=== PATIENT | female | born 1945 | race African-American/Black ===

== ENCOUNTER 2022-07-29 15:04 | Inpatient (IN) | payer OTHER ==
[~2022-07-29] VITALS: Ht 160 cm; Wt 51.3 kg
[~2022-07-29 15:04] MED LIST: FAMOTIDINE40 MG PO; OXYC1TAB9 PO; PRAVASTATIN SOD20 MG PO; PROBIOTIC & AC1 EACH PO
[2022-07-30] MEDS ORDERED: COENZYME Q10100 M1 PO (13:07)
[2022-07-30] MEDS ORDERED: FOSAMAX70 MG PO (13:07)
[2022-07-30] MEDS ORDERED: XARELTO (13:08)
[2022-07-30] MEDS ORDERED: METHOTREXATE (13:08)
[2022-07-30] MEDS ORDERED: FAMOTIDINE (13:09)
[2022-07-30] MEDS ORDERED: FOLIC ACID (13:09)
[2022-07-30] MEDS ORDERED: ALTACE10 MG (13:10)
[2022-07-30] MEDS ORDERED: NEURONTIN300 MG PO (13:10)
[2022-07-30] MEDS ORDERED: CRESTOR40 MG PO (13:10)
== END 2022-08-17 14:08 | disposition home or self-care (01) | DRG 349 ==
LOC: ADM 07-30 11:45 → EDSTATUS 07-30 11:45 → SURG 08-02 11:45 → O/R 08-16 06:57 → SURG 08-16 21:40
PROVIDERS: ADMIT Surgery; ATTEND Surgery
PROC: 0DUR0JZ Supplement Anal Sphincter with Synthetic Substitute, Open Approach (ICD-10-PCS; 2022-08-16)
PROC: 0DBP7ZZ Excision of Rectum, Via Natural or Artificial Opening (ICD-10-PCS; principal; 2022-08-16 09:45)
DX: K62.3 Rectal prolapse (principal); R15.9 Full incontinence of feces; Z20.822 Contact with and (suspected) exposure to COVID-19

== ENCOUNTER 2024-04-30 11:15 | Inpatient (IN) | payer OTHER ==
[~2024-04-30] VITALS: Ht 160 cm; Wt 54.0 kg
[~2024-04-30 11:15] MED LIST changes: +ALTACE10 MG; +COENZYME Q10100 M1 PO; +CRESTOR40 MG PO; +FAMOTIDINE; +FOLIC ACID; +FOSAMAX70 MG PO; +METHOTREXATE; +NEURONTIN300 MG PO; +XARELTO
[2024-05-07] MEDS ORDERED: CEFTRIAXONE SODIUM 2,000 MG VIAL IV SCH (14:45)
[2024-05-07] MEDS ORDERED: POVIDONE-IODINE 118 ML BOTT TOP SCH (14:45)
[2024-05-07] MEDS ORDERED: BUPIVACAINE HCL 30 ML VIAL IJ SCH (14:45)
[2024-05-07] MEDS ORDERED: METRONIDAZOLE/SODIUM CHLORIDE 500 MG/100 ML PIGGYBACK IV SCH (14:45)
[2024-05-07] MEDS ORDERED: LIDOCAINE HCL 1%/EPINEPHRINE 20ML VIAL IJ SCH (14:45)
[2024-05-07] MEDS ORDERED: RINGERS SOLUTION,LACTATED 1,000 ML IV SCH (15:30)
[2024-05-07] MEDS ORDERED: DEXTROSE 50 % IN WATER 0.5 G/ML VIAL IV PRN (15:30)
[2024-05-07] MEDS ORDERED: ONDANSETRON HCL 2 MG/ML VIAL IV PRN (15:30)
[2024-05-07] MEDS ORDERED: MORPHINE SULFATE 4 MG/ML CARTRIDGE IV PRN (15:30)
[2024-05-07] MEDS ORDERED: OxyCODONE HCL 5 MG TABLET (ROXICODONE) PO PRN (15:30)
[2024-05-07] MEDS ORDERED: GABAPENTIN 300 MG CAPSULE PO SCH (17:00)
[2024-05-07 18:08] LABS: HEMATOCRIT 34.7 % (36.0-45.00); HEMOGLOBIN 11.6 g/dL (12.0-15.00); MEAN CELL VOLUME 89.1 fL (80.00-100.00); MEAN CORPUSCULAR HEMOGLOBIN 29.8 pg (27.00-32.0); MEAN CORPUSCULAR HGB CONC 33.4 g/dl (32.0-36.0); PLATELET COUNT 184 K/uL (150-450); RED CELL DISTRIBUTION WIDTH 14.1 % (11.5-14.5)
[2024-05-07 18:24] LABS: ALBUMIN 3.4 gm/dL (3.4-5.0); CALCIUM 9.8 mg/dL (8.5-10.1); CREATININE SERUM 0.47 mg/dL (0.55-1.02); GFR 127.83; MAGNESIUM 1.8 mg/dL (1.8-2.4); POTASSIUM 4.13 mEq/L (3.5-5.1)
[2024-05-07] MEDS ORDERED: ACETAMINOPHEN 500 MG GEL..CAP PO SCH (20:00)
[2024-05-07] MEDS ORDERED: FAMOTIDINE/PF 20 MG/2 ML VIAL IV PUSH SCH (21:00)
[2024-05-08 08:52] LABS: CALCIUM 9.7 mg/dL (8.5-10.1); CREATININE SERUM 0.43 mg/dL (0.55-1.02); GFR 141.65; MAGNESIUM 1.8 mg/dL (1.8-2.4); PHOSPHOROUS 3.6 mg/dL (2.5-4.9); POTASSIUM 4.49 mEq/L (3.5-5.1)
[2024-05-08] MEDS ORDERED: RAMIPRIL 5 MG CAPSULE PO SCH (09:00)
[2024-05-08] MEDS ORDERED: PAIN RELIEVER500 M2 PO (09:09)
[2024-05-08] MEDS ORDERED: GABAPENTIN300 MG PO (09:10)
[2024-05-08] MEDS ORDERED: MIRALAX17 GM PO (09:10)
[2024-05-08] MEDS ORDERED: INTESTINEX680 M1 PO (09:11)
[2024-05-08 09:24] LABS: HEMOGLOBIN 10.8 g/dL (12.0-15.00); MEAN CORPUSCULAR HEMOGLOBIN 29.5 pg (27.00-32.0); MEAN CORPUSCULAR HGB CONC 32.8 g/dl (32.0-36.0); PLATELET COUNT 175 K/uL (150-450); RED BLOOD COUNT 3.67 M/uL (4.00-6.00); RED CELL DISTRIBUTION WIDTH 13.8 % (11.5-14.5)
[2024-05-08] MEDS ORDERED: ENOXAPARIN SODIUM 40 MG/0.4 ML SYRINGE SUBCUTANEO SCH (17:00)
[2024-05-09] MEDS ORDERED: ENOXAPARIN SODIUM 40 MG/0.4 ML SYRINGE SUBCUTANEO SCH (09:00)
== END 2024-05-08 13:54 | disposition home or self-care (01) | DRG 331 ==
LOC: SURG 05-07 08:30 → O/R 05-07 09:01 → SURG 05-07 11:15
PROVIDERS: ADMIT Surgery; ATTEND Surgery
PROC: 0DBP0ZZ Excision of Rectum, Open Approach (ICD-10-PCS; 2024-05-07)
PROC: 0DUR0JZ Supplement Anal Sphincter with Synthetic Substitute, Open Approach (ICD-10-PCS; 2024-05-07)
PROC: 0DTNFZZ Resection of Sigmoid Colon, Via Natural or Artificial Opening With Percutaneous Endoscopic Assistance (ICD-10-PCS; principal; 2024-05-07 08:30)
DX: K62.3 Rectal prolapse (principal); R15.9 Full incontinence of feces; Z20.822 Contact with and (suspected) exposure to COVID-19

== ENCOUNTER 2024-05-03 07:43 | Outpatient (CLI) | payer OTHER | END 2024-05-03 07:44 | disposition home or self-care (01) | LOC: NUCLEAR 07:43 | PROVIDERS: ATTEND Internal Medicine | DX: I20.9 Angina pectoris, unspecified (principal) | CPT/HCPCS: 78452; 93017; A9500; J0153 ==